=== PATIENT | male | born 1950 | race Caucasian/White ===

== ENCOUNTER 2024-04-12 02:11 | Emergency (ER) | payer MEDICARE ==
[~2024-04-12] VITALS: Ht 177.8 cm; Wt 127.0 kg
[2024-04-12 02:14] VITALS: O2SAT 99
[2024-04-12 02:45] LABS: CLARITY URINE CLOUDY (CLEAR); COLOR URINE YELLOW (YELLOW); GLUCOSE URINE 3+ (NEGATIVE); KETONES URINE 3+ (NEGATIVE); LEUKOCYTE ESTERASE URINE TRACE (NEGATIVE); NITRITE URINE NEGATIVE (NEGATIVE); OCCULT BLOOD URINE 2+ (NEGATIVE); PROTEIN URINE 1+ (NEGATIVE); SPECIFIC GRAVITY URINE 1.035 (1.005-1.030)
[2024-04-12 03:52] LABS: CHLORIDE 104 mEq/L (98-107); POTASSIUM 3.9 mEq/L (3.5-5.1); SODIUM 137 mEq/L (136-145)
[2024-04-12 03:53] LABS: CALCIUM 8.8 mg/dL (8.7-10.4); CARBON DIOXIDE 18 mEq/L (21-32)
[2024-04-12 03:55] LABS: HEMATOCRIT. 41.7 % (42.0-52.0); HEMOGLOBIN. 13.7 g/dL (14.0-18.0); MEAN CORPUSCULAR HEMOGLOBIN 31.2 pg (28.0-32.0); MEAN CORPUSCULAR HGB CONC 32.9 g/dL (31.0-37.0); MEAN CORPUSCULAR VOLUME 94.7 fL (80.0-94.0); PLATELET 140 x1000/uL (130-400); WHITE BLOOD COUNT 14.1 x1000/uL (4.5-11.0)
[2024-04-12 03:58] LABS: CREATININE 1.1 mg/dL (0.6-1.3); GLUCOSE 168 mg/dL (70-105); UREA NITROGEN BLOOD 17 mg/dL (9-23)
[2024-04-12 04:02] LABS: DIFFERENTIAL COMMENT 1
[2024-04-12] MEDS: CEFTRIAXONE SODIUM 1G VIAL IM ONE (04:04)
[2024-04-12] MEDS ORDERED: CIPR500S3 MT (04:49)
[2024-04-12] MEDS ORDERED: CIPR500T5 MT (04:51)
[2024-04-12 05:13] VITALS: BP 112/62; PULSE 98; RESP 16; TEMP 98.2
[2024-04-12 05:17] LABS: PLATELET ESTIMATE NORMAL
[2024-04-12 05:45] LABS: WBC URINE 25-50 /hpf (0-2)
[2024-04-12 05:46] LABS: RBC URINE 0-2 /hpf (0-2); SQUAMOUS EPITHELIAL CELL URINE NONE SEEN /lpf (RARE/1+)
[2024-04-12 05:51] LABS: BACTERIA URINE 1+
== END 2024-04-12 05:55 | disposition home or self-care (01) ==
LOC: ER 02:11
DX: N39.0 Urinary tract infection, site not specified (principal); I10 Essential (primary) hypertension; E11.9 Type 2 diabetes mellitus without complications
CPT/HCPCS: 99283; 80048; 81003; 83605; 85025; 87040; 87086; 87186; 87077; 36415; 84145; 96372; J0696